=== PATIENT | female | born 1940 | race Caucasian/White ===

== ENCOUNTER → 2024-01-22 10:03 | Outpatient (REF) | payer MEDICARE, OTHER, SELFPAY | LOC: HWRCS 10:03 | PROVIDERS: ATTENDING PHYSICIAN Nuclear Medicine Nuclear Cardiology; FAMILY PHYSICIAN Family Medicine | DX: R06.02 Shortness of breath (principal) | CPT/HCPCS: 93306 ==

== ENCOUNTER 2024-02-26 21:56 | Emergency (ER) | payer MEDICARE, OTHER, SELFPAY ==
[2024-02-26 22:03] VITALS: BP 155/88
--- NOTE | 2024-02-26 22:34 | ED.GENMED ---
History of Present Illness
General
Chief Complaint: Nose Bleed
Source: patient
Exam Limitations: none
Time Seen by Provider: 02/26/24 22:14
Nursing documentation reviewed up to this point in time: agreed with
History of Present Illness
History of Present Illness:
84-year-old female with history of hypertension hyperlipidemia who presents to the ER for evaluation of epistaxis. Started about an hour prior to arrival and has been constant. Bleeding from the right nare. No trauma. No blood thinners. Denies
other symptoms.
Past History
Past History
ED Past Medical History: HTN and Hypercholesterolemia
ED Past Surgical History: None
Social History
Tobacco: Non-smoker
Alcohol: None
Drug: None
Living: with family
Review of Systems
Review of Systems
All Other Systems: ROS reviewed and negative except as documented in HPI and ROS
EENT: Reports other (Epistaxis)
Respiratory: Denies trouble breathing
Cardiac: Denies chest pain
Neurological: Denies dizzy
Phy Exam
Physical Exam
Physical Exam:
General: Well appearing and non-toxic
HEENT: protecting airway; patient is bleeding from right nare visible source of bleeding right anterior nasal septum; left nare clear, some old clot but no active blood noted in the posterior oropharynx
Neck: appears supple
CV: No evidence of cyanosis
Resp: No accessory muscle use
Abd: Non-distended
Extremities: No deformities
Neuro: Alert
Psych: Normal affect
Skin: Intact
Scores
Heart Failure Risk
Heart Failure Risk Score: Not Applicable
Heart Score for Chest Pain Patients
STEMI patient?: Not applicable
Withdrawal Assessment of Alcohol
Withdrawal Assessment Completed?: Not applicable
Course
Orders/Labs/Results
Orders:
Orders
02/26/24 22:16
Oxymetazoline HCl [Afrin Nasal [place]] 30 sprays .ROUTE .STK-MED ONE
Vital Signs
Initial and Last Documented VS:
Initial Vital Signs
Pulse Resp BP Pulse Ox
92 18 155/88 94
02/26/24 22:03 02/26/24 22:03 02/26/24 22:03 02/26/24 22:03
Last Documented Vital Signs
Temp Pulse Resp BP Pulse Ox
36.4 C 92 18 155/88 94
02/26/24 22:37 02/26/24 22:03 02/26/24 22:03 02/26/24 22:03 02/26/24 22:03
Procedures
Nosebleed
Drug treatment: other (Oxymetazoline)
Treatment: local pressure applied, Silver nitrate cautery and other (Rhino Rocket)
Post treatment bleeding: none- good control
MDM/Problems Addressed
Differential Diagnosis Includes:
Anterior epistaxis
MDM/Problems Addressed:
84-year-old female presents with acute anterior epistaxis of the right nare. Source can be visualized on exam. Area cleaned, Afrin applied followed by continuous pressure and this was able to slow bleeding followed this up with silver nitrate
cautery and additional pressure. Will observe.
Unfortunately patient bleeding again after these measures. Attempted direct pressure once again but was not able to achieve hemostasis. Right nare anterior nasal packing placed with a Rhino Rocket. Achieved hemostasis will monitor for a brief
period and if she remains hemostatic plan to discharge and she will return in 48 hours for removal.
*Pulse Oximetry
Patient hypoxic: no
*Critical Care Note
Total Time (30-74mins, 75-104mins- exclusive of procedures): Not Applicable
Data Reviewed
Source: patient
ED Attending Note
-
Portions of this chart may have been created with voice recognition software.� Occasional wrong word or��sound alike� substitutions may have occurred due to the inherent limitations of voice recognition software.
Discharge Plan
Departure
Patient with high blood pressure during this ER visit?: Yes
Discharge Problem:
Acute anterior epistaxis
Instructions: Nosebleeds (DC)
Referrals:
Hernan Elise MD [Active] - Follow up in 2-3 days (Follow up in 2 days for packing removal; otherwise come to ED for removal. )
Activity Restrictions/Additional Instructions:
You must have your packing removed in 2 days. You can follow-up with the ENT for removal or you can return here to the emergency room in the 48 hours (on Monday) to have the packing removed.
Thank you for visiting the Emergency Department at [facility].
1. Please schedule a follow up appointment as directed. Call first thing tomorrow morning to make an appointment.
2. If indicated, please take your medications as instructed and indicated on discharge paperwork.
3. If any of your symptoms do not improve, or persist, or become more severe within 6-12 hours, please return to the emergency department for further care.
4. Please return to the emergency department if you develop a headache, neck pain/stiffness, fever greater than 100.4F, chest pain, shortness of breath, persistent nausea, vomiting, slurred speech, difficulty walking, numbness/tingling, weakness,
signs of infection or any other symptoms that are worrisome to you.
Please call [phone] if you have any questions.
Interventions
Interventions:
*Risk Screen - Suicide Last Done: 02/26/24 22:03
*General Assessment Last Done: 02/26/24 22:35
*Neglect/Abuse Screening Last Done: 02/26/24 22:03
ED- Fall Risk Assessment Last Done: 02/26/24 22:45
*ED COVID-19 Vaccine History Last Done: 02/26/24 22:35
ED-EENT Assessment Last Done: 02/26/24 22:18
Discharge Date and Time
Print Language: PORTUGUESE
[2024-02-26 22:35] VITALS: BMI 31.9
== END 2024-02-26 23:27 | disposition home or self-care (01) ==
LOC: EMR 21:56
PROVIDERS: EMERGENCY PHYSICIAN Emergency Medicine
DX: R04.0 Epistaxis (principal); I10 Essential (primary) hypertension; E78.00 Pure hypercholesterolemia, unspecified
CPT/HCPCS: 30901; 99282

== ENCOUNTER → 2025-01-10 12:47 | Outpatient (REF) | payer MEDICARE, OTHER, SELFPAY | LOC: HWRCS 12:47 | PROVIDERS: ATTENDING PHYSICIAN Nuclear Medicine Nuclear Cardiology; FAMILY PHYSICIAN Internal Medicine Geriatric Medicine | DX: I44.0 Atrioventricular block, first degree (principal); I35.0 Nonrheumatic aortic (valve) stenosis | CPT/HCPCS: 93306 ==